=== PATIENT | female | born 1980 | race Caucasian/White ===

== ENCOUNTER 2017-03-15 22:47 | Emergency (ER) | payer OTHER, BC ==
[~2017-03-15] VITALS: Ht 160 cm; Wt 72.8 kg
[2017-03-15] MEDS ORDERED: MOTRIN800 MG PO (23:26)
[2017-03-15] MEDS ORDERED: KEFLEX500 MG PO (23:27)
[2017-03-15 23:55] VITALS: BP 148/101
== END 2017-03-15 23:56 | disposition home or self-care (01) ==
LOC: EME 22:47
DX: T22.011A Burn of unspecified degree of right forearm, initial encounter (principal); X10.2XXA Contact with fats and cooking oils, initial encounter; Y93.G3 Activity, cooking and baking; Y99.0 Civilian activity done for income or pay; Z23 Encounter for immunization
CPT/HCPCS: 99281; 99284